=== PATIENT | male | born 1940 | race Caucasian/White ===

== ENCOUNTER 2020-06-06 20:52 | Inpatient (IN) | payer MEDICARE ==
[~2020-06-06] VITALS: Ht 170.2 cm; Wt 80.3 kg
[~2020-06-06 20:52] MED LIST: SIMV40TA20 PO
--- NOTE | 2020-06-06 21:40 | NUR ---
PT FELL OFF OF LADDER AT HOME ON LEFT HIP AND HAS PAIN WHILE WALKING AND SITTING. CMS INTACT IN BOTH EX AND ABLE TO PLACE HIMSELF INTO GURNEY WITH MINIMAL ASSISTANCE. AT BEDSIDE. PT GIVEN WARM BLANKET AND PLACED ON MONITORS. AWAITING ERP EVAL
--- NOTE | 2020-06-06 22:00 | NUR ---
PT TO XRAY
--- NOTE | 2020-06-06 23:24 | NUR ---
TASK RN: PT REQUESTING THE BATHROOM. PT GIVEN URINAL. PT HAS NO OTHER NEEDS AT THIS TIME. CALL LIGHT IN REACH
[2020-06-07] MEDS ORDERED: MORPHINE SULFATE 4 MG/ML, 1ML IVPush PRN (03:00)
[2020-06-07] MEDS ORDERED: ONDANSETRON 2MG/ML, 2ML IVPush PRN ×2 (03:00→06:00)
[2020-06-07] MEDS ORDERED: SODIUM CHLORIDE 0.9% 1,000 ML IV ONE (03:00)
[2020-06-07] MEDS ORDERED: SODIUM CHLORIDE FLUSH 10ML SYR IVF PRN (03:00)
--- NOTE | 2020-06-07 03:41 | NUR ---
report given to maria del rosario noriega
[2020-06-07 04:15] VITALS: BP 142/90
[2020-06-07] MEDS ORDERED: morphine SULFATE 10 MG/ML, 1ML IVPush PRN (06:00)
[2020-06-07] MEDS ORDERED: LABETALOL 5MG/ML, 20ML IVPush PRN (06:00)
[2020-06-07 06:48] VITALS: BP 125/79
[2020-06-07] MEDS ORDERED: SODIUM CHLORIDE 0.9% 1,000 ML IV SCH (07:30)
[2020-06-07 07:42] LABS: BASOPHILS % (AUTO) 0 % (0-1); EOSINOPHILS % (AUTO) 1 % (1-7); LYMPHOCYTES % (AUTO) 16 % (22-44); MEAN CORPUSCULAR HEMOGLOBIN 33.9 pg (27.5-34.5); MEAN CORPUSCULAR HGB CONC 34.7 g/dL (33.2-36.2); MEAN PLATELET VOLUME 6.5 fL (7.4-10.4); MONOCYTES % (AUTO) 10 % (2-9); NEUTROPHILS % (AUTO) 74 % (42-75); PLATELET COUNT 243 x10^3/uL (130-400); RED BLOOD COUNT 3.29 x10^6/uL (4.38-5.82)
[2020-06-07 07:45] LABS: ALANINE AMINOTRANSFERASE 24 U/L (12-78); ALBUMIN 3.4 g/dL (3.4-5.0); ANION GAP 6 mmol/L (5-15); CALCIUM 8.5 mg/dL (8.5-10.1); CHLORIDE 110 mmol/L (98-107); CREATININE 0.89 mg/dL (0.7-1.3)
[2020-06-07 07:47] LABS: ALKALINE PHOSPHATASE 71 U/L (45-117); BILIRUBIN,TOTAL 0.9 mg/dL (0.2-1.0); TOTAL PROTEIN 6.7 g/dL (6.4-8.2)
[2020-06-07 07:58] LABS: MD NO
[2020-06-07] MEDS: ENOXAPARIN 40 MG/0.4 ML SQ SCH (12:09)
[2020-06-07 12:42] VITALS: BP 118/68
[2020-06-07] MEDS ORDERED: HYDROcodone/APAP 5/325 TABLET PO PRN (17:00)
[2020-06-07] MEDS ORDERED: MAGNESIUM HYDROXIDE 8%, 30ML UDC PO PRN (17:00)
[2020-06-07 19:30] VITALS: BP 124/78
[2020-06-07] MEDS: DOCUSATE 100 MG CAPSULE PO SCH (21:57)
[2020-06-07] MEDS: SIMVASTATIN 40 MG TABLET PO SCH (21:57)
[2020-06-08 02:10] VITALS: BP 118/68
[2020-06-08 05:28] LABS: BASOPHILS % (AUTO) 0 % (0-1); EOSINOPHILS % (AUTO) 3 % (1-7); LYMPHOCYTES % (AUTO) 22 % (22-44); MEAN CORPUSCULAR HEMOGLOBIN 33.1 pg (27.5-34.5); MEAN CORPUSCULAR HGB CONC 33.5 g/dL (33.2-36.2); MEAN PLATELET VOLUME 6.7 fL (7.4-10.4); MONOCYTES % (AUTO) 10 % (2-9); NEUTROPHILS % (AUTO) 65 % (42-75); PLATELET COUNT 210 x10^3/uL (130-400); RED BLOOD COUNT 3.23 x10^6/uL (4.38-5.82); RED CELL DISTRIBUTION WIDTH 14.1 % (9.4-14.8)
[2020-06-08 05:29] LABS: MD NO
[2020-06-08 05:31] LABS: ANION GAP 5 mmol/L (5-15); CALCIUM 8.3 mg/dL (8.5-10.1); CHLORIDE 110 mmol/L (98-107); CREATININE 0.84 mg/dL (0.7-1.3)
[2020-06-08] MEDS: DOCUSATE 100 MG CAPSULE PO SCH ×2 (07:37→19:31)
[2020-06-08] MEDS: ENOXAPARIN 40 MG/0.4 ML SQ SCH (11:17)
[2020-06-08 15:00] VITALS: BP 118/81
[2020-06-08 19:14] VITALS: BP 108/71
[2020-06-08] MEDS: SIMVASTATIN 40 MG TABLET PO SCH (19:31)
[2020-06-09] MEDS: DOCUSATE 100 MG CAPSULE PO SCH (07:41)
[2020-06-09 07:57] VITALS: BP 124/88
[2020-06-09] MEDS ORDERED: PRESERVISION PO SCH (08:00)
[2020-06-09] MEDS: ENOXAPARIN 40 MG/0.4 ML SQ SCH (11:45)
[2020-06-09 13:56] VITALS: BP 114/72
[2020-06-09 14:35] VITALS: BP 118/73
== END 2020-06-09 15:37 | disposition home or self-care (01) | DRG 536 ==
LOC: ED 22:18 → EDIP 06-07 02:39 → 4NE 06-07 04:15 → DCLOUNGE 06-09 15:27
PROVIDERS: ADMIT Internal Medicine; ATTEND Internal Medicine
DX: S32.402A Unspecified fracture of left acetabulum, initial encounter for closed fracture (principal); D50.0 Iron deficiency anemia secondary to blood loss (chronic); E78.5 Hyperlipidemia, unspecified; Z87.891 Personal history of nicotine dependence; W11.XXXA Fall on and from ladder, initial encounter; Y93.89 Activity, other specified; Y92.89 Other specified places as the place of occurrence of the external cause; Y99.8 Other external cause status
CPT/HCPCS: 36415; 72190; 80048; 80053; 85025; G0378; J1650; J7030